=== PATIENT | female | born 1965 | race Caucasian/White ===

== ENCOUNTER 2024-02-14 09:07 | Day surgery (SDC) | payer BC, SELFPAY ==
[2024-02-14] MEDS: fentaNYL 100 MCG/2 ML inj IVP (07:14)
[2024-02-14] MEDS: MIDAZOLAM HCL 1 MG/ML inj IVP (07:14)
[2024-02-14] MEDS: LACTATED RINGERS 1000 ML 1,000 ML 100 ML IV (07:15)
--- OUTSIDE RECORDS SUMMARY | 2024-02-14 09:11 | XMS_ITS | Clinical Summary ---
Author Name Unknown Organization [employer] [facility] Address [place], [place] [address] Care Team Providers Care Director Recreation Name Role Phone Mariama Lara MD Primary Care Provider Allergies No known active allergies Medications Medication Sig Dispensed Refills Start Date End Date Status levothyroxine (SYNTHROID) 50 mcg tabletIndications:Hypot hyroidism, unspecified type Take 1 Tablet (50 mcg) by mouth before breakfast. 90 Tablet 3 06/02/2023 Active acyclovir (ZOVIRAX) 400 mg tabletIndications:Herpe tic gingivostomatitis Take 0.5 Tablets (200 mg) by mouth 5 times daily. Take at onset of outbreak for 5 days. 25 Tablet 11 06/30/2023 Active durable medical equipment (DME)Indications:Bunion of right foot,S/P foot surgery, right 01ES-M Airselect, Short, Medium 1 Each 11/17/2023 Active hydrocortisone-acetic acid (VOSOL HC) otic solutionIndications:Chr onic otitis externa of both ears, unspecified type Place 4 Drops into both ears four times daily for 7 days. 10 mL 02/09/2024 02/16/2024 Active Active Problems Problem Noted Date Diagnosed Date Pap smear for cervical cancer screening 12/02/19 Overview: 12/2021 NIL/HPV negative. PLAN: Pap/HPV testing due 12/2026 Routine adult health maintenance 05/29/2015 Overview: Colonoscopy 05/2015 normal repeat in 10 years Menopausal syndrome (hot flashes) 01/08/2015 Herpetic gingivostomatitis 03/26/2011 Unspecified hypothyroidism 02/28/2009 Adjustment disorder with mixed anxiety and depre ssed mood 12/07/2007 Resolved Problems Problem Noted Date Diagnosed Date Resolved Date Stress fracture of femoral neck 04/10/2009 04/10/2009 Stress Fracture of Right Femoral Neck 04/10/2009 09/04/2013 Encounters Date Type Department Care Team Description 02/09/2024 3:40 PM CDT Preop Visit [facility] [address] [place] [address] Mariama Lara MD Pre-Op Exam (Bunion oh [facility] foot[facility] 02/14/24) 02/09/2024 Travel 12/21/2023 Medical Messaging [facility] [address] [place] [address] Michi French, DPM Recovery period from bunion fusion 12/20/2023 Telephone [facility] [address] [place] [address] Michi French DPM Questions 11/17/2023 4:00 PM MANUFACTURING TECHNOLOGY PROFESSOR Ancillary Procedure [facility] [address] [place] [address] 11/17/2023 3:30 PM MANUFACTURING TECHNOLOGY PROFESSOR Office Visit [facility] [address] [place] [address] Michi French DPM Consult (Right bunion, discuss surgery) 11/17/2023 Travel from Last 3 Months Immunizations Name Administration Dates Next Due COVID-19 vaccine (Mobibeam-Bio NTech 30mcg/0.3mL) 12YO+ BIVALENT PF, MDV 08/28/2022 COVID-19 vaccine (Pfizer-Bio NTech 30mcg/0.3mL) 12YO+ FAY-SUCROSE PF, MDV 03/02/2022 COVID-19 vaccine (Mobibeam-Bio NTech 30mcg/0.3mL) PF, MDV 02/18/2021,01/28/2021 Influenza Virus, Unspecified 09/06/2016,08/16/20 15,08/08/2014 Influenza, IIV4 10/02/2022,08/14/2021,08/14/2013 Influenza, Whole Virus 08/12/2017 Td (Age >=7 Years) 12/16/2005 Tdap 12/25/2021,03/30/2012,12/16/2005 Zoster (Shingrix-RZV, recombinant) 10/02/2022, Family History Medical History Relation Name Comments Diabetes Father Cancer-colon Maternal Grandfather 50 yr Good Health Mother Stroke Paternal Grandfather Good Health Paternal Grandmother Cancer-breast No Family History Relation Name Status Comments Father Maternal Grandfather Mother Paternal Grandfather Paternal Grandmother Social History Tobacco Use Types Packs/Day Years Used Date Smoking Tobacco: Former Cigarettes 1 12/02/1988 - 10/01/1996 Smokeless Tobacco: Never Tobacco Cessation:Counseling Given: Yes Comments:Quit 15 years ago, was smoking 10 cigarettes per day Alcohol Use Standard Drinks/Week Comments Yes 0 (1 standard drink = 0.6 oz pure alcohol) occasional; 5 glasses wine per week PHQ-2 Answer Date Recorded PHQ-2 TOTAL SCORE 0 06/02/2023 Social Connections Answer Date Recorded Frequency of Communication with Friends and Fami ly 0 05/30/2023 Financial Resource Strain Answer Date R ecorded Difficulty of Paying Living Expenses 3 05/30/2023 Difficulty of Paying Living Expenses Not on file 05/30/2023 Food Insecurity Answer Date Recorded Worried About Running Out of Food in the Last Ye ar 1 05/30/2023 Transportation Needs Answer Date Record ed Lack of Transportation (Medical) 1 05/30/2023 Housing Stability Answer Date Recorded Unable to Pay for Housing in the Last Year 1 05/30/2023 Sex and Gender Information Value Date Recorded Sex Assigned at Not on file Gender Identity Not on file Sexual Orientation Not on file Obstetrics History Para Term AB IAB SAB Ectopic Multiple Livin g Live Births 2 1 1 2 Date Outcome GA Total Labor Labor/2nd/3rd Weight Sex Delivery Anes PTL Raquel A1 A5 Name Cl in Term Last Filed Vital Signs Vital Sign Reading Time Taken Comments Blood Pressure 137/86 02/09/2024 3:50 PM CDT Pulse 66 02/09/2024 3:50 PM CDT Temperature 36.7 ??C (98.1 ??F) 07/24/2019 8:16 AM CD T Respiratory Rate - - Oxygen Saturation 99% 02/09/2024 3:50 PM CDT Inhaled Oxygen Concentration - - Weight 83.4 kg (183 lb 12.8 oz) 02/09/2024 3:50 PM CDT Height 161.3 cm (5' 3.5) 02/09/2024 3:50 PM CDT Body Mass Index 32.05 02/09/2024 3:50 PM CDT Plan of Treatment Upcoming Encounters Date Type Department Care Team (Late st Contact Info) Description 02/16/2024 10:30 AM CDT Office Visit [facility] [address] [place] [address] Michi French DPM [address] [place] [address] 03/01/2024 10:30 AM CDT Office Visit [facility] [address] [place] [address] Michi French DPM [address] [place] [address] Health Maintenance Due Date Last Done Comments Depression screening for age 12+ 06/02/2024 06/02/2023, 12/25/2021, 07/31/2020, Additional history exists Influenza for age 50-64 07/02/2024 10/02/20 22, 08/14/2021, 08/12/2017, Additional history exists Mammogram for age 45-75 09/02/2024 09/02/20 23, 08/18/2022, 07/31/2021, Additional history exists BMI (ht and wt on same day) for age 18+ 02/08/2025 02/09/2024, 06/02/2023, 12/25/2021, Additional history exists Colonoscopy through age 75 05/29/2025 05/29/2015, Pap test for age 21-65 12/25/2026 2, 12/25/2021, 07/07/2018, Additional history exists Lipids for age 45-75 01/13/2027 01/13/2022, 07/08/2018, 10/20/2016, Additional history exists Tetanus booster 12/25/2031 12/25/2021, 03/03, 12/16/2005, Additional history exists Hepatitis C screening for age 18-79 Completed 08/21/2014 Tdap Completed 12/25/2021, 03/03, 12/16/2005 Zoster (shingles) series for age 50+ Completed 10/02/2022, 12/25/2021 HIV for age 15-65 Completed 04/28/2023 COVID-19 vaccine series Completed 08/04/20, 08/28/2022, 03/02/2022, Additional history exists Pneumococcal series for age 6-64 Aged Out No longer eligible based on patient's age to complete this topic Procedures Procedure Name Priority Date/Time Associated Diagnosis Comments XR FOOT 3 VIEWS RIGHT Routine 11/17/2023 3:33 PM MANUFACTURING TECHNOLOGY PROFESSOR Bunion of right foot XR MAMMO GENE BILAT SCREEN Routine 09/02/2023 7:20 AM CDT Encounter for screening mammogram for malignant neoplasm of breast LC HIV-1/O/2, 4TH GENERATION Routine 04/28/2023 8:13 AM CDT Screening for HIV (human immunodeficiency virus) LIPID PANEL W REFLEX MEASURED LDL Routine 01/13/2022 7:11 AM CDT Lipid screening HPV THIN PREP Routine 12/25/2021 8:25 AM MANUFACTURING TECHNOLOGY PROFESSOR Screening for cervical cancer ANTI HCV Routine 08/21/2014 9:07 AM CDT Need for hepatitis C screening test from Last 3 Months or Most Recently Relevant to Health Maintenance Results * XR FOOT 3 VIEWS RIGHT (11/17/2023 3:33 PM MANUFACTURING TECHNOLOGY PROFESSOR) Anatomical Region Laterality Modality FEET, FOOT R Computed Radiogr aphy 11/17/2023 3:41 PM MANUFACTURING TECHNOLOGY PROFESSOR Narrative 11/17/2023 3:41 PM MANUFACTURING TECHNOLOGY PROFESSOR For Patients: ??As a result of the Cures Act, medical imaging exams and procedure reports are released immediately into your electronic medical record. ??You may view this report before your referring provider. ??If you have questions, please contact your health care provider. Indication: Bunion Technique: Right foot 3 views Comparison: 06/10/2016 Findings: 34 degrees hallux valgus with bony and soft tissue bunion. Degenerative changes at the 2nd tarsometatarsal joint. Plantar calcaneal spur and a smaller posterior calcaneal spurs. Impression: Hallux valgus and bunion. Dictated by Otoniel Osorio MD @ Nov 17 2023 ??3:41PM (Electronically Signed) ?? Procedure Note Otoniel Osorio MD - 11/17/2023 For Patients: As a result of the s Act, medical imagingexams and procedure reports are released immediately into your electronicmedical record. You may view this report before your referring provider.If you have questions, please contact your health care provider. Indication: Bunion Technique: Right foot 3 views Comparison: 06/10/2016 Findings: 34 degrees hallux valgus with bony and soft tissue bunion. Degenerativechanges at the 2nd tarsometatarsal joint. Plantar calcaneal spur and asmaller posterior calcaneal spurs. Impression: Hallux valgus and bunion. Dictated by Otoniel Osorio MD @ Nov 17 2023 3:41PM (Electronically Signed) Michi French DPCh[facility] * XR MAMMO GENE BILAT SCREEN (09/02/2023 7:20 AM CDT) Anatomical Region Laterality Modality BREASTS, Breast Left, Breast Right Bilateral Mammography Impressions 09/03/2023 3:42 PM CDT ??There is no radiographic evidence for malignancy. ??Recommend annual mammograms. MAMMOGRAM ASSESSMENT: ??ACR 1 Negative PATIENTS: You will also receive a letter with your examination results in an easy to read format. ??If you have questions about your results, please contact your referring provider. Narrative 09/03/2023 3:42 PM CDT For Patients: As a result of the 21st Century Cures Act, medical imaging exams and procedure reports are released immediately into your electronic medical record. You may view this report before your referring provider. If you have questions, please contact your health care provider. XR MAMMO GENE BILAT SCREEN [[id number]] CLINICAL HISTORY: ??This is an asymptomatic 58 y.o. patient. INDICATION FOR EXAM: Mammogram Screening. TECHNIQUE: CC & MLO views were obtained. ??This study was evaluated with the assistance of Computer-Aided Detection. Breast Tomosynthesis was used in interpretation. COMPARISON FILM: Yes 08/18/22 [facility] 07/31/21 [facility] FINDINGS: ??The breasts are heterogeneously dense, which may obscure small masses. There are no dominant masses, suspicious micro calcifications or areas of architectural distortion. Mariama Lara MD MAMMO * LC HIV-1/O/2, 4TH GENERATION (04/28/2023 8:13 AM CDT) Pathologist [facility] HIV Scr 4th Gen Non Reactive Non Reactive 05/01/2023 8:09 AM CDT [facility] ([facility]) Comment: HIV Negative HIV-1/HIV-2 antibodies and HIV-1 p24 antigen were NOT detected. There is no laboratory evidence of HIV infection. Blood BLOOD SPECIMEN / Unknown Venipuncture / Unknown 04/28/2023 8:13 AM CDT 04/28/2023 8:23 AM CDT Narrative [facility] ([facility]) - 05/01/2023 8:09 AM CDT Performed at: ??[address] ??[id number] Warehouse Distribution Associate: Mega Cerna MD, Phone: ??[phone] Mariama Lara MD LABORATORY [facility] ([facility]) [address] [place] [id number], * (ABNORMAL) LIPID PANEL W REFLEX MEASURED LDL (01/13/2022 7:11 AM CDT) CHOLESTEROL,TOTAL 201(H) 100 - 199 mg/dL 01/13/2022 5:56 PM CDT [facility] TRIGLYCERIDES 75 <150 mg/dL 01/13/2022 5:56 PM CDT [facility] HDL CHOLESTEROL 82 >40 mg/dL 5:56 PM CDT [facility] NON-HDL CHOLESTEROL 119 <145 mg/dl 01/13/2022 5:56 PM CDT [facility] CHOL/HDL RATIO 2.45 <4.50 01/13/2022 5:56 PM CDT [facility] LDL CHOLESTEROL 104 <=130 mg/dL 01/13/2022 5:56 PM CDT [facility] VLDL CHOLESTEROL 15 <=30 mg/dL 01/13/2022 5:56 PM CDT [facility] PROVIDER ORDERED STATUS RANDOM 01/13/2022 5:56 PM T [facility] Blood BLOOD SPECIMEN / Unknown Venipuncture / Unknown 01/13/2022 7:11 AM CDT 01/13/2022 7:11 AM CDT Mariama Lara MD CHEMISTRY [facility] [address] [place] [address], * HPV HIGH RISK (12/25/2021 8:25 AM MANUFACTURING TECHNOLOGY PROFESSOR) TYPE 16 Negative Negative 12/30/2021 5:45 AM MANUFACTURING TECHNOLOGY PROFESSOR [facility] TYPE 18 Negative Negative 12/30/2021 5:45 AM MANUFACTURING TECHNOLOGY PROFESSOR [facility] OTHER HIGH RISK TYPES Negative Negative 12/30/2021 5:45 AM MANUFACTURING TECHNOLOGY PROFESSOR [facility] Other (Cervical) Non-Blood / Unknown 12/25/2021 8:25 AM MANUFACTURING TECHNOLOGY PROFESSOR 12/26/2021 9:11 AM MANUFACTURING TECHNOLOGY PROFESSOR Narrative [facility] - 12/30/2021 5:45 AM MANUFACTURING TECHNOLOGY PROFESSOR HPV types 16, 18, 31, 33, 35, 39, 45, 51, 52, 56, 58, 59, 66 and 68 DNA were undetectable or below the pre-set threshold. Methodology: Leonie Shanon 4800 HPV Test Mariama Lara MD MICROBIOLOGY [facility] [address] [place] [address], * ANTI HCV (08/21/2014 9:07 AM CDT) HEPATITIS C ANTIBODY Non-Reacti ve Non-Reacti ve 08/21/2014 5:01 PM CDT [facility] Blood specimen (specimen) BLOOD SPECIMEN / Unknown Venipuncture / Unknown 08/21/2014 9:07 AM CDT 08/21/2014 9:07 AM CDT Narrative [facility] - 08/21/2014 5:01 PM CDT Antibodies to HCV not detected; does not exclude the possibility of exposure to HCV. Jaimie Owen JUVENILE OFFICER SEND OUTS Performing Organization Address City/[facility]/ZIP Co de Phone Number [facility] [address] [place] [address], from Last 3 Months or Most Recently Relevant to Health Maintenance Care Teams Director Recreation Relationship Specialty Start Date End Date aMriama Lara MD [facility] [place] [address] PCP - General Family Practice 07/12/20
[2024-02-14 09:30] VITALS: BMI 32.4
[2024-02-14 09:32] VITALS: BMI 32.4
[2024-02-14 09:36] VITALS: BP 134/92; PULSE 73; RESP 16; TEMP 37.2; O2SAT 99
[2024-02-14] MEDS: SODIUM CHLORIDE 0.9 % (FLUSH) 10 ML SYRINGE IVF (09:53)
--- NOTE | 2024-02-14 10:37 | SUR.PREOP ---
TIME?OUT:?1035 PT/RN/COURTNEY?VERIFICATION?OF?SURGICAL?SITE,?PROCEDURE,?AND?CONSENT OBTAINED?PRIOR?TO?INVASIVE?PROCEDURE.1035 right foot r esa cortez mda
[2024-02-14] MEDS: CEFAZOLIN 2 GM INJ IVP (10:54)
[2024-02-14] MEDS: BUPIVACAINE 0.5% 30 ML INJECTION (11:02)
--- NOTE | 2024-02-14 11:07 | XR_ITS ---
Patient: IRVING CHUA Facility:?[facility] Patient ID:?[id number] Site Patient ID:?[id number]. Site :?[id number] Study:?XRay-Extremity Right foot w/ c-arm-02/14/2024 12:46:46 PM Ordering Physician:Wanda Final Report: Indication: Right bunionectomy Technique: Three fluoroscopic images of the right foot. Fluoroscopic time 21.9 seconds. IMPRESSION: Fluoroscopic guidance for Lapidus bunionectomy. Dictated by Otoniel Osorio MD @ 02/14/2024 3:51:59 PM Signed by:?Otoniel Osorio MD @02/14/2024 3:51:59 PM (Electronic Signature)
--- NOTE | 2024-02-14 11:50 | W.PM.NB ---
Nerve Block Nerve Block Time Seen by Provider: 10:42 Date Seen: 02/14/24 Type of block requested by surgeon for post-operative analgesia: popliteal Side: right Time out performed: Yes Verification of patient name: Yes Verification of date of : Yes Site marking: site marked Name of person performing procedure: Andrea Continuous monitoring Was continuous monitoring of O2 sat, B/P, groundwater monitoring technician, recorded every 15 minutes?: Yes Procedure Checklist: sterile prep, needles and gloves Ultrasound guided. Images saved: Yes Medications given in 5ml increments after negative aspiration: Ropivicaine %: 0.5 mL: 20 Needle gauge: 22 Patient tolerated procedure well: Yes Additional comments: Needle noted adjacent to nerve Block Charges Block Charge (with Pro Fee): Sciatic Nerve Use of Ultrasound Machine for Block: Yes- US Guidance/pain block
--- NOTE | 2024-02-14 11:50 | W.PM.NB ---
Nerve Block Nerve Block Time Seen by Provider: 10:42 Date Seen: 02/14/24 Type of block requested by surgeon for post-operative analgesia: adductor canal Side: right Time out performed: Yes Verification of patient name: Yes Verification of date of : Yes Site marking: site marked Name of person performing procedure: Andrea Continuous monitoring Was continuous monitoring of O2 sat, B/P, cardiac cath lab radiology technologist, recorded every 15 minutes?: Yes Procedure Checklist: sterile prep, needles and gloves Ultrasound guided. Images saved: Yes Medications given in 5ml increments after negative aspiration: Ropivicaine %: 0.5 mL: 20 Needle gauge: 20 Patient tolerated procedure well: Yes Additional comments: Needle noted adjacent to nerve Block Charges Block Charge (with Pro Fee): Femoral Nerve Use of Ultrasound Machine for Block: Yes- US Guidance/pain block
--- NOTE | 2024-02-14 13:07 | W.PODPROC_ITS ---
Date of Procedure: 02/14/24 Surgeon: Michi French DPM Pre-op Diagnosis: Hallux valgus with bunion right Post-op Diagnosis: hallux valgus with bunion right Type of Procedure: Lapidus bunionectomy right Indications: patient has had a longstanding painful bunion deformity not responding to conservative care. She has elected to have surgical correction. I reviewed the procedure, recovery, expectation and potential complications. These include but are not limited to: Poor wound healing, infection, under correction, over correction, nonunion, delayed union, malunion, hardware irritation or failure, nerve injury, Potential need for future surgery, complex regional pain syndrome, deep venous thrombosis, pulmonary embolism and possible . patient stands risks written consent was obtained. All questions answered. Site was marked. Procedure Description: The patient from the operating room placed supine position on the operating table. IV sedation was initiated local anesthetic injected in the right foot. She had a preoperative popliteal and adductor blocks by Anesthesia. She was prepped and draped in sterile fashion. Standard time-out protocol followed. The right foot was exsanguinated the tourniquet inflated to 250 mm Hg. the d orsomedial curvilinear incision made over the 1st metatarsophalangeal joint and extended proximal to the metatarsal cuneiform joint of the right foot. Incision was carried down through skin subcutaneous tissues. Bleeding vessels were cauterized. Blunt dissection was carried down to the 1st MPJ joint capsule and a T-shaped capsular incision made. Capsular tissues reflected away from the 1st metatarsal head. Blunt dissection carried down into the 1st intermetatarsal space. Standard lateral lease was performed. The dorsal fibular sesamoidal ligaments, adductor tendon and plantar lateral joint capsule released. Blunt dissection was then carried down to the 1st metatarsal cuneiform joint capsule. The extensor tendons reflected laterally. Neurovascular structures carefully protected throughout. Joint was incised. Joint distractor applied. With the joint distracted the articular surface and subchondral bone was removed with a osteotome and curette from the opposing fusion surfaces. Area was thoroughly irrigated normal sterile saline. Joint was further prepped with multiple drill holes and fish-scaled with an osteotome. The Lapifuse jig was applied and the 1st metatarsal reduced in all 3 planes until optimal correction achieved. A 4.0 partially-threaded cannulated screw was then placed from plantar medial to dorsal lateral across the fusion site and into the middle cuneiform. A dorsal medial 5 hole plate was then applied with a 3.0 mm nonlocking screw distal and proximal and a 3.0 mm locking screw distal and proximal. 0.5 mL of DBM was used to fill the small gap. C-arm confirmed excellent reduction of the 1st ray and bunion. First metatarsal head was remodeled using a rotary bur and saw. Area was thoroughly irrigated normal sterile saline. Redundant capsular tissue was excised and the joint capsule repaired with 3-0 Vicryl. Proximal subcutaneous tissues reapproximated with 3-0 Vicryl. Subcutaneous tissues reapproximated 4-0 Monocryl and skin closed with 4-0 Prolene. Excellent position of the hallux with smooth 1st MPJ range of motion. Sterile dressing was then applied. Tourniquet was released and normal capillary fill time returned all digits. She was placed in a short cam boot. She was transferred from OR to PACU with vital signs stable and vascular status intact. She will be discharged per same-day surgery protocol. Both written and verbal postop instructions given. She is given oxycodone for pain. She will follow-up in 2 days time. Anesthesia: MAC, regional and local Hemostasis: ankle Estimated blood loss (mL): 2 Implants: Muna Lapifuse 5 hole plate x1, 3.0 mm nonlocking screw x2, 3.0 mm locking screw x2, 4.0 mm cannulated screw x1. [employer] DBM 1 mL. Disposition: same day
[2024-02-14 13:14] VITALS: BP 131/79; PULSE 76; RESP 16; TEMP 36.9; O2SAT 97
--- NOTE | 2024-02-14 13:17 | W.ANESCHARGE ---
Anesthesia Charges Start Date/Time Anesthesia Start Date: 02/14/24 Anesthesia Start Time: 10:48 Stop Date/Time Anesthesia Stop Date: 02/14/24 Anesthesia Stop Time: 13:12
[2024-02-14 13:30] VITALS: BP 145/86; PULSE 74; RESP 16; O2SAT 94
[2024-02-14 13:45] VITALS: BP 126/53; PULSE 63; RESP 16; O2SAT 98
--- NOTE | 2024-02-14 14:23 | W.ANESCHARGE ---
Anesthesia Charges Start Date/Time Anesthesia Start Date: 02/14/24 Anesthesia Start Time: 10:48 Stop Date/Time Anesthesia Stop Date: 02/14/24 Anesthesia Stop Time: 13:12
== END 2024-02-14 14:10 | disposition home or self-care (01) ==
LOC: OR 09:09
PROVIDERS: PCP Family Medicine; Visit Provider Podiatrist
PROC: (CPT 28292; principal; 2024-02-14 10:30)
DX: M20.11 Hallux valgus (acquired), right foot (principal); M21.611 Bunion of right foot; G89.18 Other acute postprocedural pain
CPT/HCPCS: 28297; 01480; 64445; 64447; 73630; 76000; 76942; C1713; J0665; J0690; J2250; J2704; J2795; J3010; J3490; J7120

== ENCOUNTER 2024-04-25 08:45 | Outpatient (RCR) | payer BC, SELFPAY | END 2024-08-23 23:59 | disposition home or self-care (01) | PROVIDERS: PCP Family Medicine; Visit Provider Podiatrist | DX: M20.11 Hallux valgus (acquired), right foot (principal); Z98.890 Other specified postprocedural states; M21.611 Bunion of right foot; R26.9 Unspecified abnormalities of gait and mobility; Z51.89 Encounter for other specified aftercare | CPT/HCPCS: 97110; 97140; 97162 ==

== ENCOUNTER 2024-06-09 15:07 | Outpatient (CLI) | payer BC, SELFPAY ==
--- OUTSIDE RECORDS SUMMARY | 2024-06-09 15:11 | XMS_ITS | Clinical Summary ---
Author Organization [facility] Address [place], [place] [address] Care Team Providers Care Inspector Plumbing Name Role Phone Mariama Lara MD Primary [...] Airselect, Short, Medium 1 Each 11/17/2023 Active benzonatate (Tessalon Perles) 100 mg capsuleIndications:Infl uenza-like illness,Suspected COVID-19 virus infection Take 1 Capsule (100 mg) by mouth 3 times daily if needed for Cough. 30 Capsule 04/28/2024 Active albuterol HFA (ProAir HFA) 90 mcg/actuation inhalerIndications:Infl uenza-like illness,Suspected COVID-19 virus infection Inhale 1-2 Puffs by mouth every 6 hours if needed for Shortness of Breath 1st choice. 1 Each 04/28/2024 Active Active Problems Problem Noted Date Diagnosed Date Pap smear for cervical cancer screening 12/02/19 22 Overview: 12/2021 NIL/HPV negative. PLAN: Pap/HPV testing [...] Encounters Date Type Department Care Team Description 05/25/2024 Orders Only [facility] Scanner 1 scan: (1-Ord) TAREEN DERMATOLOGY, SHAVE BIOPSY, LEFT PROXIMAL CALF/ LEFT INFERIOR MEDIAL MIDBACK, 05/25/2024 05/24/2024 8:00 AM CDT Office Visit [facility] [address] [place] [address] Michi French DPM Post-op (Right 3 month post op visit, DOS 02/14/24) 05/24/2024 Travel 04/28/2024 8:40 AM CDT Ancillary Procedure [facility] [address] [place] [address] 04/28/2024 8:10 AM CDT Office Visit [facility] [address] [place] [address] Sasha Villanueva PA URI 04/28/2024 Travel 04/06/2024 Medical Messaging [facility] [address] [place] [address] Michi French DPM Physical Therapy 03/29/2024 11:00 AM CDT Ancillary Procedure [address] [address] 03/29/2024 10:45 AM CDT Office Visit [facility] [address] [place] [address] Michi French DPM Post-op (Right foot, DOS 02/14/24, 6 week post op) 03/29/2024 Travel from Last 3 Months Immunizations Name Administration Dates Next Due COVID-19 vaccine (Wepa-Bio NTech 30mcg/0.3mL) 12YO+ BIVALENT PF, MDV 08/28/2022 COVID-19 vaccine (Pfizer-Bio NTech 30mcg/0.3mL) 12YO+ FAY-SUCROSE PF, MDV 03/02/2022 COVID-19 vaccine ([employer] NTech 30mcg/0.3mL) PF, MDV 02/18/2021,01/28/2021 Influenza Virus, [...] of Communication with Friends and Fami ly Not on file 06/01/2024 Financial Resource Strain Answer Date R ecorded [...] Outcome GA Total Labor Labor/2nd/3rd Weight Sex Type Anes PTL Raquel A1 A5 Name Clin Term Last Filed Vital Signs Vital Sign Reading Time Taken Comments Blood Pressure 118/85 05/24/2024 7:57 AM CDT Pulse 64 05/24/2024 7:57 AM CDT Temperature 37.9 ??C (100.2 ??F) 04/28/2024 8:06 AM C DT Respiratory Rate - - Oxygen Saturation 100% 05/24/2024 7:57 AM CDT Inhaled Oxygen Concentration - - Weight 84.2 kg (185 lb 9.6 oz) 04/28/2024 8:06 A M CDT Height 161.3 cm (5' 3.5) 02/09/2024 3:50 PM CDT Body Mass Index 32.36 02/09/2024 3:50 PM CDT Plan of Treatment Health Maintenance Due Date Last Done Comments [...] Procedure Name Priority Date/Time Associated Diagnosis Comments SCAN-OPERATIVE/PRO CEDURE REPORT 05/25/2024 12:00 AM CDT XR CHEST 2 VIEWS PA AND LATERAL STAT 04/28/2024 8:44 AM CDT Influenza-like illness Suspected COVID-19 virus infection COVID/FLU/RSV PANEL Routine 04/28/2024 8:07 AM CDT Influenza-like illness THROAT RAPID STREP ONLY CLINIC Routine 04/28/2024 8:07 AM CDT Sore throat XR FOOT 3 VIEWS RIGHT Routine 03/29/2024 10:54 AM CDT Follow-up examination after orthopedic surgery XR MAMMO GENE BILAT SCREEN Routine 09/02/2023 7:20 AM CDT Encounter for screening mammogram for malignant neoplasm of breast LC HIV-1/O/2, 4TH GENERATION Routine 04/28/2023 8:13 AM CDT Screening for HIV (human immunodeficiency virus) LIPID PANEL W REFLEX MEASURED LDL Routine 01/13/2022 7:11 AM CDT Lipid screening HPV THIN PREP Routine 12/25/2021 8:25 AM [employer] MA[employer]GER [employer]ODUCTION Screening for cervical cancer ANTI HCV Routine 08/21/2014 9:07 AM CDT Need for hepatitis C screening test from Last 3 Months or Most Recently Relevant to Health Maintenance Results * SCAN-OPERATIVE/PROCEDURE REPORT (05/25/2024 12:00 AM CDT) Scanner OTHER * XR CHEST 2 VIEWS PA AND LATERAL (04/28/2024 8:44 AM CDT) Anatomical Region Laterality Modality CHEST, THORAX, Lung, HEART Compu radhames Radiography 04/28/2024 8:59 AM CDT Impressions 04/28/2024 8:59 AM CDT Lungs clear. Dictated by Adalgisa Pearson MD @ 04/28/2024 8:59:36 AM (Electronically Signed) Narrative 04/28/2024 8:59 AM CDT For Patients: ??As a result of the Cures Act, medical imaging exams and procedure reports are released immediately into your electronic medical record. ??You may view this report before your referring provider. ??If you have questions, please contact your health care provider. INDICATION: Influenza like illness, suspected COVID-19 COMPARISON: None. TECHNIQUE: PA and lateral 2 view chest. FINDINGS: Lung volumes are good. No focal or diffuse opacities. No pulmonary edema. No pleural effusion. No pneumothorax. No pneumomediastinum. Normal cardiomediastinal silhouette. Bones: Right mid clavicular fracture deformity. No acute appearing findings. Procedure Note Adalgisa Pearson MD - 04/28/2024 For Patients: As a result of the Cures Act, medical imagingexams and procedure reports are released immediately into your electronicmedical record. You may view this report before your referring provider.If you have questions, please contact your health care provider. INDICATION: Influenza like illness, suspected COVID-19 COMPARISON: None. TECHNIQUE: PA and lateral 2 view chest. FINDINGS: Lung volumes are good. No focal or diffuse opacities. No pulmonary edema.No pleural effusion. No pneumothorax. No pneumomediastinum. Normal cardiomediastinal silhouette. Bones: Right mid clavicular fracture deformity. No acute appearingfindings. IMPRESSION: Lungs clear. Dictated by Adalgisa Pearson MD @ 04/28/2024 8:59:36 AM (Electronically Signed) Sasha NIXON GENERAL IMAGIN G * COVID/FLU/RSV PANEL (04/28/2024 8:07 AM CDT) COVID 19 ALLGRAVITY MOLECULAR Negative Negative 04/28/2024 4:24 PM CDT [facility] Comment:All PCR tests are chilel bject to false negative result due to variability in viral load and collection technique. A negative result does not rule out a SARS-CoV-2 infection. Clinical correlation required. INFLUENZA A PCR Negative 4 4:24 PM CDT [facility] INFLUENZA B PCR Negative 4 4:24 PM CDT [facility] Respiratory Syncytial Virus Negative 04/28/2024 4:24 PM CDT [facility] Swab NASOPHARYNGEAL SWAB / Unknown Non-Blood / Unknown 04/28/2024 8:07 AM CDT 04/28/2024 8:10 AM CDT Sasha NIXON MICROBIOLOGY [facility] [address] [place] [address], * THROAT RAPID STREP ONLY CLINIC (04/28/2024 8:07 AM CDT) THROAT RAPID STREP A ANTIGEN Negative 04/28/2024 8:18 AM CDT [facility] Throat SPECIMEN FROM THROAT / Unknown Non-Blood / Unknown 04/28/2024 8:07 AM CDT 04/28/2024 8:10 AM CDT Sasha NIXON MICROBIOLOGY [facility] [address] [place] [address], * XR FOOT 3 VIEWS RIGHT (03/29/2024 10:54 AM CDT) Anatomical Region Laterality Modality FEET, FOOT R Computed Radiogr aphy 03/29/2024 10:0 1 PM CDT Narrative 03/29/2024 10:01 PM CDT For Patients: ??As a result of the Cures Act, medical imaging exams and procedure reports are released immediately into your electronic medical record. ??You may view this report before your referring provider. ??If you have questions, please contact your health care provider. Indication: Follow-up surgery Technique: Right foot 3 views Comparison: 02/16/2024 Findings: Fusion hardware across the 1st TMT joint remains intact. Partial osseous bridging noted. Plantar and posterior calcaneal spurs. Postop changes of bunionectomy. Impression: Postop changes Lapidus bunionectomy with intact hardware and partial osseous bridging across the fusion. Dictated by Otoniel Osorio MD @ 03/29/2024 10:01:10 PM (Electronically Signed) Procedure Note Otoniel Osorio MD - 03/29/2024 For Patients: As a result of the Cures Act, medical imagingexams and procedure reports are released immediately into your electronicmedical record. You may view this report before your referring provider.If you have questions, please contact your health care provider. Indication: Follow-up surgery Technique: Right foot 3 views Comparison: 02/16/2024 Findings: Fusion hardware across the 1st TMT joint remains intact. Partial osseousbridging noted. Plantar and posterior calcaneal spurs. Postop changes ofbunionectomy. Impression: Postop changes Lapidus bunionectomy with intact hardware and partialosseous bridging across the fusion. Dictated by Otoniel Osorio MD @ 03/29/2024 10:01:10 PM (Electronically Signed) Michi French DPM GENERAL IMAGING * XR MAMMO GENE BILAT [...] For Patients: As a result of the Century Cures Act, medical imaging exams and procedure reports are released immediately into your electronic medical record. You may view this report before your referring provider. If you have questions, please contact your health care provider. XR MAMMO GENE BILAT SCREEN [[id number]] CLINICAL HISTORY: ??This is an asymptomatic 58 y.o. patient. INDICATION FOR EXAM: Mammogram Screening. TECHNIQUE: CC & MLO views were obtained. ??This study was evaluated with the assistance of Computer-Aided Detection. Breast Tomosynthesis was used in interpretation. COMPARISON FILM: Yes 08/18/22 [facility] 07/31/21 [facility] FINDINGS: ??The breasts are heterogeneously dense, which may obscure small masses. There are no dominant masses, suspicious micro calcifications or areas of architectural distortion. Mariama Lara MD MAMMO * LC HIV-1/O/2, 4TH GENERATION (04/28/2023 8:13 AM CDT) HIV Scr 4th Gen Non Reactive Non Reactive 05/01/2023 8:[address] [facility] Comment: HIV Negative HIV-1/HIV-2 antibodies and HIV-1 p24 antigen were NOT detected. There is no laboratory evidence of HIV infection. Blood BLOOD SPECIMEN / Unknown Venipuncture / Unknown 04/28/2023 8:13 AM CDT 04/28/2023 8:23 AM CDT Narrative [facility] ([facility]) - 05/01/2023 8:09 AM CDT Performed at: ??01 - [facility] [address], [place] ??[id number] [employer] Sticker: Mega Cerna MD, Phone: ??[phone] Mariama Lara MD LABORATORY [facility] ([facility]) [facility] [place] [address], [place] * (ABNORMAL) LIPID PANEL W REFLEX MEASURED LDL (01/13/2022 7:11 AM CDT) CHOLESTEROL,TOTAL 201(H) 100 - 199 mg/dL 01/13/2022 5:56 PM CDT [facility] TRIGLYCERIDES 75 <150 mg/dL 01/13/2022 5:56 PM CDT [facility] HDL CHOLESTEROL 82 >40 mg/dL 5:56 PM CDT [facility] NON-HDL CHOLESTEROL 119 <145 mg/dl 01/13/2022 5:56 PM CDT [facility] CHOL/HDL RATIO 2.45 <4.50 01/13/2022 5:56 PM CDT [facility] LDL CHOLESTEROL 104 <=130 mg/dL 01/13/2022 5:56 PM CDT [facility] VLDL CHOLESTEROL 15 <=30 mg/dL 01/13/2022 5:56 PM CDT [facility] PROVIDER ORDERED STATUS RANDOM 01/13/2022 5:56 PM CDT [facility] Blood BLOOD SPECIMEN / Unknown Venipuncture / Unknown 01/13/2022 7:11 AM CDT 01/13/2022 7:11 AM CDT Mariama Lara MD CHEMISTRY [facility] [address] [place] [address], [place] * HPV HIGH RISK (12/25/2021 8:25 AM SE[employer] MA[employer]GER [employer]ODUCTION) TYPE 16 Negative Negative 12/30/2021 5:45 AM [employer] MANAGER [employer]ODUCTION [facility] TYPE 18 Negative Negative 12/30/2021 5:45 AM SE[employer] MANAGER [employer]ODUCTION [facility] OTHER HIGH RISK TYPES Negative Negative 12/30/2021 5:45 AM SE[employer] MANAGER [employer]ODUCTION [facility] Other (Cervical) Non-Blood / Unknown 12/25/2021 8:25 AM [employer] MANAGER [employer]ODUCTION 12/26/2021 9:11 AM [employer] MANAGER [employer]ODUCTION Narrative [facility] - 12/30/2021 5:45 AM [employer] MA[employer]GER [employer]ODUCTION HPV types 16, 18, 31, 33, 35, 39, 45, 51, 52, 56, 58, 59, 66 and 68 DNA were undetectable or below the pre-set threshold. Methodology: Leonie Shanon 4800 HPV Test Mariama Lara MD MICROBIOLOGY [facility] [address] [place] [address], [place] * ANTI HCV (08/21/2014 9:07 AM CDT) HEPATITIS C ANTIBODY Non-Reacti ve Non-Reacti ve 08/21/2014 5:01 PM CDT [facility] Blood specimen (specimen) BLOOD SPECIMEN / Unknown Venipuncture / Unknown 08/21/2014 9:07 AM CDT 08/21/2014 9:07 AM CDT Narrative [facility] - 08/21/2014 5:01 PM CDT Antibodies to HCV not detected; does not exclude the possibility of exposure to HCV. Jaimie Owen NP SEND OUTS [facility] [address] [place] [address], [place] from Last 3 Months or Most Recently Relevant to Health Maintenance Care Teams Inspector Plumbing Relationship Specialty Start Date End Date Mariama Lara MD [address] [place] [address] PCP - General Family Practice 07/12/20
--- NOTE | 2024-06-09 15:30 | MR_ITS ---
[address] [address] Phone:?[phone] Fax:?[phone] Referring Physician Information: Dariel Jha M.D. [address] [facility] [address] Phone:?[phone] Fax:?[phone] Patient:Griffin Henriquez D.O.B:?1965 Sex:?Female Phone:?[phone] [facility] MRN:?[id number] Exam Date:?06/09/2024 EXAM: MRI EXAMINATION OF THE LEFT SHOULDER CLINICAL INFORMATION: Left shoulder pain. No specific injury. No history of surgery to this area. Suspect rotator cuff tear. TECHNICAL INFORMATION: Coronal STIR as well as axial, sagittal and coronal PD and T2-weighted images were acquired. No prior studies for INTERPRETATION: Bones: There is no Hill-Sachs impaction deformity. No other occult fracture or osseous contusion. No other bone marrow edema pattern. Rotator Cuff: Series 8 image 7 as well as series 4 images 10 through 12 demonstrate a 1.1 x 1.2 cm chunky and irregular low signal intensity focus of tissue associated with and overlying bursal sided fibers of the anterior supraspinatus tendon insertion. Surrounding fraying and indistinctness involving the bursal sided fibers of the supraspinatus tendon insertion. The infraspinatus tendon is intact without tear or significant tendinopathy. The teres minor tendon is intact. There are mild changes of subscapularis tendinopathy. No appreciable rotator cuff muscle belly atrophy. Coracoacromial arch: There is no discrete subacromial osseous spur. The bony acromiohumeral interval is measuring 5 to 6 mm. There is no thickening identified of the coracoacromial ligament. Acromioclavicular joint: Mild to moderate AC joint DJD. No deformity of the underlying supraspinatus tendon. Mild to moderate fluid and edema signal within the subacromial/subdeltoid bursa areas. Biceps tendon: The long head biceps tendon is intact and nondisplaced from the bicipital groove. No evidence for a tendon tear or appreciable changes of tendinopathy. Glenohumeral joint and labrum: No significant glenohumeral joint effusion. No discrete loose body within the joint. Chondromalacia without evidence for full-thickness cartilage loss involves the anteroinferior aspect of the glenoid. There is tearing identified through the superior aspect of the labrum. Tearing continues involving the superior posterior aspect of the labrum. Series 4 images 15 through 17 demonstrate a 2 cm lobulated superior posterior paralabral cyst which extends within the spinoglenoid notch. CONCLUSION: 1. 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 There is a 1.1 x 1.2 cm lobulated segment of calcium hydroxyapatite deposition associated with and overlying bursal sided fibers of the anterior tendon insertion. Associated fraying and indistinctness of the surrounding bursal sided fibers of the tendon. 2. Mild to moderate AC joint with mild to moderate narrowing of the acromiohumeral interval. Mild to moderate subacromial/subdeltoid bursitis. 3. Tearing through the superior and superior posterior aspects of the labrum. There is a 2 cm superior posterior paralabral cyst which extends within the spinoglenoid notch. No rotator cuff denervation changes are identified. 4. Chondromalacia without evidence for full-thickness cartilage loss overlying the anteroinferior glenoid. 5. Unremarkable and intact long head biceps tendon. KES Electronically signed on 06/12/2024 10:17:00 AM by Shade Cordero M.D.
== END 2024-06-09 15:08 | disposition home or self-care (01) ==
PROVIDERS: PCP Family Medicine; Visit Provider Orthopaedic Surgery
DX: M25.512 Pain in left shoulder (principal); M75.102 Unspecified rotator cuff tear or rupture of left shoulder, not specified as traumatic; M75.52 Bursitis of left shoulder; S43.432A Superior glenoid labrum lesion of left shoulder, initial encounter; M94.212 Chondromalacia, left shoulder
CPT/HCPCS: 73221